=== PATIENT | male | born 1985 | race Two or more races ===

== ENCOUNTER 2018-08-06 03:27 | Emergency (ER) | payer MEDICAID ==
[~2018-08-06] VITALS: Ht 185.4 cm; Wt 95.3 kg
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
[2018-08-06] MEDS ORDERED: HYDROCODONE/APAP 10/325MG 1 EA TABLET PO ONE (04:00)
[2018-08-06] MEDS ORDERED: IBUPROFEN 400 MG TABLET PO ONE (04:00)
[2018-08-06] MEDS ORDERED: HYDROCODONE/APAP 10/325MG 1 EA TABLET ONE (04:03)
[2018-08-06] MEDS ORDERED: IBUPROFEN 400 MG TABLET ONE (04:04)
--- NOTE | 2018-08-06 04:15 | NUR ---
PT BEING WHEELED TO RADIOLOGY VIA WHEELCHAIR
--- NOTE | 2018-08-06 04:34 | NUR ---
PT BACK FROM RADIOLOGY.
[2018-08-06 05:03] VITALS: BP 126/72
--- NOTE | 2018-08-06 05:10 | NUR ---
Patient discharged to home in stable condition. Written and verbal after care instructions given. Patient verbalizes understanding of instruction.
== END 2018-08-06 05:10 | disposition home or self-care (01) ==
LOC: ER 03:27
DX: S39.012A Strain of muscle, fascia and tendon of lower back, initial encounter (principal); S20.219A Contusion of unspecified front wall of thorax, initial encounter; S09.8XXA Other specified injuries of head, initial encounter; F41.9 Anxiety disorder, unspecified; V49.59XA Passenger injured in collision with other motor vehicles in traffic accident, initial encounter; Y93.89 Activity, other specified; Y92.413 State road as the place of occurrence of the external cause; Y99.8 Other external cause status
CPT/HCPCS: 70450-TC; 71250-TC; 72131-TC

== ENCOUNTER 2019-08-21 03:20 | Emergency (ER) | payer MEDICAID ==
[~2019-08-21] VITALS: Ht 185.4 cm; Wt 90.7 kg
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
[2019-08-21] MEDS ORDERED: ONDANSETRON HCL/PF 4 MG/2 ML VIAL ONE (03:47)
[2019-08-21] MEDS: ONDANSETRON HCL/PF 4 MG/2 ML VIAL IM ONE (03:51)
--- NOTE | 2019-08-21 04:45 | NUR ---
Patient discharged to custody of [employer] in stable condition. Written and verbal after care instructions given. Patient verbalizes understanding of instruction.
[2019-08-21 04:46] VITALS: BP 123/69
== END 2019-08-21 04:46 ==
LOC: ER 03:20
DX: R11.2 Nausea with vomiting, unspecified (principal); F41.9 Anxiety disorder, unspecified
CPT/HCPCS: 71045; 96372; 99283; J2405